=== PATIENT | female | born 1960 | race Caucasian/White ===

== ENCOUNTER 2022-08-05 00:56 | Day surgery (SDC) | payer OTHER, SELFPAY ==
[2022-08-03 15:36] VITALS: BMI 26.7
--- NOTE | 2022-08-03 15:43 | PC.NURSE ---
Report to the Outpatient Waiting Room, entrance under the green pavilion located off [facility], at time 1100 on date 08/05/22. Planned Procedure Time: 1300. Time changes happen often and if your time is changed the preop area will call you the afternoon before. - You and your visitor will be asked to self-screen and do not enter if you have any COVID symptoms. - Only one visitor is requested with a max of two and NO children visitors are allowed at this time. - The patient visitor may be requested to leave or wait in car when not with patient due to distancing restrictions. - A mask is optional within the hospital. Patients may have clear liquids (water, carbonated beverages, clear teas, apple juice) until 3 hours prior to surgery with a maximum of 20 ounces. - No food from midnight until time of surgery Take the following medications with a SIP of water the morning of surgery: AMLODIPINE, METOPROLOL, PAIN PILL IF NEEDED Medications to discontinue per physician: N/A Date to take last dose: N/A Please no make-up, nail slovenian, hairspray, perfume, deodorant, or body powder the day of surgery. No jewelry (including any body piercings) or valuables the day of surgery, leave them at home. Please take a shower or bath the night before, or the morning of, surgery with an antibacterial soap. Wear comfortable, loose fitting clothing. - Jewelry must be removed prior to entering the operating room. Rings and piercings that are not removed may be cut off. - The hospital will not accept responsibility for valuables. - Please leave all valuables, including medications, at home the day of surgery. If you are going home after surgery, a licensed gas truck driver must drive you home. - NO public transportation without another adult if you receive anesthesia. - We recommend that an adult stay with you for 24 hours following discharge. - We also recommend that you do not drive, make important decision, drink alcoholic beverages, or take any drugs that were not prescribed by your health care provider for at least 24 hours after your discharge time. Follow any additional instructions given to you from your surgeon. If you or anyone in your household have experienced Covid symptoms in the past week, please notify your surgeon or the nurse liaison at the phone number below for possible testing. Telephone instructions given to PT - DOLLY JENKINS and asked if any additional questions and then verbalized understanding. Patient advised to call surgeon office or pre surgery nurse liaison [phone] if any additional questions.
--- NOTE | 2022-08-04 14:45 | P.PNAN_ITS ---
Anes - Initial Pre Proc Eval Procedure: Operation Date: 08/05/22 10:30 Proposed Procedures p Left Extracorporeal Shock Wave Lithotripsy, - Andrea Briceno MD s Cystoscopy, Left Stent Removal - Andrae Briceno MD Date/Time: 08/04/22 14:45 Surgeon: Andrea Briceno MD Pre Op Diagnosis: left ureteral stone Patient Data Age: 62 Gender: F Height: 1.63 m Weight: 70.76 kg Allergies Allergy/AdvReac Type Severity Reaction Status Date / Time No Known Allergies Allergy Verified 08/03/22 15:33 Home Medications Medication Instructions Recorded Confirmed Type amlodipine 5 mg tablet 5 mg PO DAILY 08/03/22 08/03/22 History hydrocodone 5 mg-acetaminophen 325 1 tablet PO Q6H PRN Pain 08/03/22 08/03/22 History mg tablet liraglutide 0.6 mg/0.1 mL (18 mg/3 1.8 mg subcut DAILY 08/03/22 08/03/22 History mL) subcutaneous pen injector (Pacejet Logisticstoza 3-Julius) metformin 1,000 mg tablet 1,000 mg PO BID 08/03/22 08/03/22 History metoprolol succinate 25 mg 75 mg PO BID 08/03/22 08/03/22 History tablet,extended release 24 hr rosuvastatin 10 mg tablet 10 mg PO DAILY 08/03/22 08/03/22 History Patient hx anesthesia problems: none Family hx anesthesia problems: none Results Review: All pre-operative results and documents have been reviewed as part of the pre- operative evaluation. [facility] Past Medical History Medical History (Updated 08/04/22 @ 14:46 by Cruzito Vega MD) Diabetes HTN (hypertension) Hyperlipidemia CRISTINO (obstructive sleep apnea) Renal cell cancer Ureterolithiasis Social History Social History Smoking packs per day: 1 Smoking cigarettes per day: 20.0 Years smoked: 45 Smoking pack-years: 45.00 Smoking status: Current every day smoker Tobacco type: cigarettes Alcohol intake: never Substance use: never Substance use type: does not use Living arrangements: with family Spiritual care concerns: No Anes - Eval Final PreProcedure Day of Procedure 08/04/22 14:45 Patient weight: overweight Heart: regular rate and rhythm Lungs: clear to auscultation and normal air movement Airway: Mallampati scale class II Neurological: alert and oriented Last oral intake: >/= 8 hours ASA classification: III Emergent: no Anesthetic plan: proceed Anesthesia type and monitoring: general LMA Results Review: All pre-operative results and documents have been reviewed as part of the pre- operative evaluation. Informed Consent: The patient's anesthetic plan and its attendant risks and benefits were discu ssed with the patient/family/POA. Questions were solicited and answers provided to the satisfaction of the patient/family/POA.
--- NOTE | ~2022-08-05 | XR_ITS ---
EXAMINATION: XR abdomen/kub 1V DATE: 08/05/2022 08:37 INDICATION: Kidney stone. TECHNIQUE: A supine view of the abdomen on 2 radiographs was obtained. COMPARISON: None. FINDINGS: There are no dilated loops of bowel. There is a left internal ureteral stent in expected po sition. There is a 4 mm calcification overlying the proximal left ureter. A calcification in left pel vis is likely a phlebolith. IMPRESSION: 1. Left internal ureteral stent in expected position. 2. 4 mm calcification overlying the proximal left ureter, which may be a stone. Reviewed, dictated and finalized at location A. O STUDIO ASSISTANT
[2022-08-05 08:43] VITALS: BP 134/67; PULSE 93; RESP 18; TEMP 36.8; O2SAT 100
[2022-08-05] MEDS: LACTATED RINGERS 1,000 ML 30 ML IV CONT (09:11)
[2022-08-05 09:30] LABS: Glucose Point of Care 98 mg/dl (65-105)
[2022-08-05 09:40] LABS: INR 1.1; Partial Thromboplastin Time 29.2 SECONDS (22.3-36.8); Prothrombin Time 13.4 Seconds (11.1-14.7)
--- NOTE | 2022-08-05 10:23 | WPDHPUPDATE1 ---
History and Physical Update Update Date/Time: 08/05/22 10:23 History and Physical has been reviewed, including an updated exam of the patient. There are NO changes in the patient's condition. Risks, benefits, and alternatives have been discussed and questions answered. Patient agrees to proceed with procedure.
--- NOTE | 2022-08-05 10:25 | PM.HPGS ---
History of Present Illness History of Present Illness Consent: Risks, benefits, and alternatives have been discussed and questions answered. Patient agrees to proceed with procedure. Chief complaint: left ureteral stone Narrative: Leyla Ricks is a 62 year old female Has a history of urolithiasis in the past, recently admitted with a painful obstructing 6 mm left proximal ureteral stone. The ureteral stent was placed inside follows definitive left ESWL. She is aware the risk including, but not limited to, adverse cardiopulmonary events, perinephric hematoma, persistent ureteral stone fragments that could require additional intervention. Review of Systems Cardiovascular: Cardiovascular: Denies chest pain, Denies lightheadedness, Denies palpitations and Denies dyspnea Respiratory: Respiratory: Denies dyspnea Gastrointestinal: Gastrointestinal: Denies diarrhea, Denies nausea and Denies vomiting Genitourinary: Genitourinary: Denies hematuria and Denies dysuria Endocrine: Endocrine: Denies palpitations [facility] Past Medical History Medical History (Updated 08/05/22 @ 10:27 by Andrea Briceno MD) Diabetes HTN (hypertension) Hyperlipidemia CRISTINO (obstructive sleep apnea) Renal cell cancer Ureterolithiasis Social History Social History Smoking packs per day: 1 Smoking cigarettes per day: 20.0 Years smoked: 45 Smoking pack-years: 45.00 Smoking status: Current every day smoker Tobacco type: cigarettes Alcohol intake: never Substance use: never Substance use type: does not use Living arrangements: with family Spiritual care concerns: No Meds Home Medications and Allergies Home Medications Medication Instructions Recorded Confirmed Type amlodipine 5 mg tablet 5 mg PO DAILY 08/03/22 08/03/22 History hydrocodone 5 mg-acetaminophen 325 1 tablet PO Q6H PRN Pain 08/03/22 08/03/22 History mg tablet liraglutide 0.6 mg/0.1 mL (18 mg/3 1.8 mg subcut DAILY 08/03/22 08/03/22 History mL) subcutaneous pen injector (Victoza 3-Julius) metformin 1,000 mg tablet 1,000 mg PO BID 08/03/22 08/03/22 History metoprolol succinate 25 mg 75 mg PO BID 08/03/22 08/03/22 History tablet,extended release 24 hr rosuvastatin 10 mg tablet 10 mg PO DAILY 08/03/22 08/03/22 History Allergies Allergy/AdvReac Type Severity Reaction Status Date / Time No Known Allergies Allergy Verified 08/05/22 09:21 Vital Signs Vital Signs - 24 hr 08/05/22 08:43 Temperature 98.2 F Pulse Rate 93 Respiratory Rate 18 Blood Pressure 134/67 Pulse Oximetry 100 Oxygen Delivery Room Air Exam Const: General: no acute distress Resp: Effort & Inspection: normal respiratory effort GI: Inspection: non-distended GI Palp: No abdominal tenderness and No Guarding due to palpation present (GI) Auscultation: normal bowel sounds Assessment and Plan Assessment and plan (1) Left renal stone: Code(s): N20.0 - Calculus of kidney Status: Acute Assessment and Plan: Cystoscopy, left ureteral stent removal and left ESWL
[2022-08-05] MEDS: ceFAZolin 2 GM/D5W 50 ML 2 GM/50 ML BAG IVPB (10:42)
--- NOTE | 2022-08-05 11:04 | P.OP_ITS ---
Procedure Note - Detailed Date of Procedure 08/05/22 Pre-op Diagnosis Left ureteral stone Post-op Diagnosis Same Procedure Performed Cystoscopy with left ureteral stent removal, left ESWL Surgeon Andrea Briceno MD Anesthesia General Description of Procedure The patient was brought to the operative suite where she was placed in the frog- legged position on the Dornier lithotripter table. Flexible cystoscopy was undertaken with a 16F flexible cystoscopy. Her urethra and bladder neck were endoscopically normal. The bladder mucosa was normal and there was a single, orthotopic ureteral orifice bilaterally. The tip of the indwelling stent is grasped from the stent is removed with ease. The patient was then repositioned in the supine position and the focal point of the lithotriptor was placed at a 6-7mm left renal pelvic calculus. A total of 2500 shocks were delivered at a power setting of 4. There appeared to be good fragmentation of the stone. The patient tolerated the procedure well and was taken to the recovery room in good condition. Drains No Packing Yes Pathology Yes Complications No immediate complications Condition Stable Disposition PACU
[2022-08-05 11:25] VITALS: BP 176/87; PULSE 89; RESP 20; O2SAT 95
[2022-08-05 11:40] VITALS: BP 100/71; PULSE 84; RESP 20; O2SAT 94
[2022-08-05 11:55] VITALS: BP 109/49; PULSE 82; RESP 18; O2SAT 96
[2022-08-05 11:59] VITALS: BP 135/60; PULSE 86; RESP 18
[2022-08-05 12:25] VITALS: BP 145/65; PULSE 82; RESP 18
== END 2022-08-05 12:53 | disposition home or self-care (01) ==
PROVIDERS: PCP Physician Assistant; Visit Provider Urology
PROC: (CPT 50590; principal; 2022-08-05 10:30)
PROC: (CPT 52352; 2022-08-05 10:30)
DX: N20.1 Calculus of ureter (principal); I10 Essential (primary) hypertension; E11.9 Type 2 diabetes mellitus without complications; E78.5 Hyperlipidemia, unspecified; G47.33 Obstructive sleep apnea (adult) (pediatric); F17.210 Nicotine dependence, cigarettes, uncomplicated; Z79.84 Long term (current) use of oral hypoglycemic drugs; Z79.899 Other long term (current) drug therapy
CPT/HCPCS: 52310; 50590; 36415; 74018; 82948; 85610; 85730; C1758; C1769; J0690; J1100; J2250; J2405; J2704; J3010; J7120

== ENCOUNTER 2022-08-19 14:45 | Outpatient (CLI) | payer OTHER, SELFPAY ==
--- NOTE | ~2022-08-19 | XR_ITS ---
XR abdomen/kub 1V 08/19/2022 15:13 INDICATION: Renal stones TECHNIQUE: KUB COMPARISON: None FINDINGS: Bowel gas pattern is normal. Interval removal of left internal ureteral stent. There is no evidence of free air, mass, organomegaly, ascites or obstruction. No stones identified in the kidneys or expected course of the ureters. Kidneys obscured by bowel content. The bones appear intact. Moder ate lumbar spondylosis. IMPRESSION: 1: No acute abdominal abnormality identified. Reviewed, dictated and finalized at location A. INE SET UP
== END 2022-08-19 14:46 | disposition home or self-care (01) ==
PROVIDERS: PCP Physician Assistant; Visit Provider Urology
DX: N20.0 Calculus of kidney (principal)
CPT/HCPCS: 74018